=== PATIENT | female | born 1975 | race Caucasian/White ===

== ENCOUNTER 2017-05-08 03:22 | Emergency (ER) | payer MEDICAID ==
[2015-04-30 19:52] VITALS: BMI 25.7
[2017-05-08 03:52] LABS: BASOPHILS 0.1 % (0-2); EOSINOPHILS 1.2 % (0-7); HEMATOCRIT 44.7 % (36.0-48.0); HEMOGLOBIN 15.2 g/dL (12-16); IMMATURE GRANULOCYTES 0.1 % (0-5); LYMPHOCYTES 7.1 % (15-50); MCH 28.8 pg (26.0-34.0); MCV 84.8 fL (80.0-100.0); MONOCYTES 6.9 % (2-11); NEUTROPHILS 84.6 % (40-80); PLATELET COUNT 260 10x3/uL (130-400); RBC 5.27 10x6/uL (4.00-5.40); RDW 13.6 % (11.5-14.5); WBC 8.7 10x3/uL (4.8-10.8)
[2017-05-08 04:11] LABS: ALBUMIN 4.1 g/dL (3.4-5.0); ALKALINE PHOSPHATASE 89 U/L (46-116); ALT (SGPT) 20 U/L (10-68); AMYLASE - SERUM 90 U/L (25-115); BILIRUBIN - TOTAL 0.88 mg/dL (0.2-1.3); CALC OSMOLALITY 278 mosm/kg (275-300); CALCIUM 8.8 mg/dL (8.5-10.1); CHLORIDE - SERUM 104 mmol/L (98-107); CREATININE - SERUM 0.6 mg/dL (0.6-1.3); LIPASE 160 U/L (73-393); POTASSIUM - SERUM 3.6 mmol/L (3.5-5.1); SODIUM 138 mmol/L (136-145); UREA NITROGEN 19 mg/dL (7-18); eGFR NON AFRICAN AMERICAN > 90 mL/min (90-120)
[2017-05-08 04:13] LABS: GLUCOSE 124 mg/dL (74-106)
[2017-05-08 05:34] LABS: APPEARANCE HAZY (CLEAR); BACTERIA MODERATE /hpf (NONE SEEN); BILIRUBIN NEGATIVE (NEGATIVE); COLOR YELLOW (YELLOW); EPITHELIAL CELLS 0-5 /hpf (0-5); GLUCOSE NEGATIVE (NEGATIVE); KETONE MODERATE mg/dL (NEGATIVE); NITRITE NEGATIVE (NEGATIVE); PROTEIN TRACE mg/dL (NEGATIVE); RED CELLS - URINE 0-5 /hpf (0-5); SPECIFIC GRAVITY 1.025 (1.005-1.020); UROBILINOGEN NORMAL (NORMAL)
[2017-05-08 05:35] LABS: HCG URINE NEGATIVE (NEGATIVE)
[2017-05-14 18:06] LABS: AEROBE ID Final report (())
== END 2017-05-08 06:00 | disposition home or self-care (01) ==
LOC: D.ER 03:22
PROVIDERS: Family Medicine
DX: N39.0 Urinary tract infection, site not specified (principal)

== ENCOUNTER 2017-08-01 09:12 | Emergency (ER) | payer MEDICAID ==
[2015-04-30 19:52] VITALS: BMI 25.7
[2017-08-01 10:41] LABS: BASOPHILS 0.3 % (0-2); EOSINOPHILS 2.3 % (0-7); HEMATOCRIT 42.7 % (36.0-48.0); HEMOGLOBIN 14.2 g/dL (12-16); IMMATURE GRANULOCYTES 0.1 % (0-5); LYMPHOCYTES 29.7 % (15-50); MCH 28.2 pg (26.0-34.0); MCHC 33.3 g/dL (31.0-37.0); MCV 84.9 fL (80.0-100.0); MEAN PLATELET VOLUME 9.4 fL (7.4-10.4); MONOCYTES 10.2 % (2-11); NEUTROPHILS 57.4 % (40-80); RBC 5.03 10x6/uL (4.00-5.40); RDW 13.3 % (11.5-14.5)
[2017-08-01 10:47] LABS: ALBUMIN 4.2 g/dL (3.4-5.0); ALKALINE PHOSPHATASE 77 U/L (46-116); ALT (SGPT) 20 U/L (10-68); BILIRUBIN - TOTAL 0.51 mg/dL (0.2-1.3); CALC OSMOLALITY 279 mosm/kg (275-300); CALCIUM 8.9 mg/dL (8.5-10.1); CARBON DIOXIDE 25.2 mmol/L (21.0-32.0); CHLORIDE - SERUM 105 mmol/L (98-107); CREATININE - SERUM 0.8 mg/dL (0.6-1.3); GLUCOSE 84 mg/dL (74-106); POTASSIUM - SERUM 4.2 mmol/L (3.5-5.1); PROTEIN - SERUM 7.7 g/dL (6.4-8.2); SODIUM 140 mmol/L (136-145); UREA NITROGEN 18 mg/dL (7-18); eGFR NON AFRICAN AMERICAN 84 mL/min (90-120)
[2017-08-01 10:50] LABS: PLATELET COUNT 391 10x3/uL (130-400)
== END 2017-08-01 14:10 | disposition home or self-care (01) ==
LOC: D.ER 09:12
PROVIDERS: Family Medicine
DX: R55 Syncope and collapse (principal); R00.0 Tachycardia, unspecified

== ENCOUNTER 2017-09-01 21:03 | Emergency (ER) | payer BC ==
[2015-04-30 19:52] VITALS: BMI 25.7
== END 2017-09-01 22:39 | disposition home or self-care (01) ==
LOC: D.ER 21:03
DX: G43.909 Migraine, unspecified, not intractable, without status migrainosus (principal)

== ENCOUNTER 2017-11-17 12:52 | Emergency (ER) | payer BC ==
[2015-04-30 19:52] VITALS: BMI 25.7
[2017-11-17 13:25] LABS: BASOPHILS 0.5 % (0-2); EOSINOPHILS 2.6 % (0-7); HEMATOCRIT 39.3 % (36.0-48.0); HEMOGLOBIN 12.8 g/dL (12-16); IMMATURE GRANULOCYTES 0.2 % (0-5); LYMPHOCYTES 28.6 % (15-50); MCH 26.6 pg (26.0-34.0); MCHC 32.6 g/dL (31.0-37.0); MCV 81.5 fL (80.0-100.0); MEAN PLATELET VOLUME 8.7 fL (7.4-10.4); MONOCYTES 9.1 % (2-11); RBC 4.82 10x6/uL (4.00-5.40); RDW 15.3 % (11.5-14.5); WBC 6.5 10x3/uL (4.8-10.8)
[2017-11-17 14:10] LABS: PLATELET COUNT 283 10x3/uL (130-400)
[2017-11-17 16:09] LABS: APPEARANCE CLEAR (CLEAR); BILIRUBIN NEGATIVE (NEGATIVE); COLOR YELLOW (YELLOW); GLUCOSE NEGATIVE (NEGATIVE); KETONE NEGATIVE (NEGATIVE); NITRITE NEGATIVE (NEGATIVE); PROTEIN NEGATIVE (NEGATIVE); UROBILINOGEN NORMAL (NORMAL)
== END 2017-11-17 17:42 | disposition home or self-care (01) ==
LOC: D.ER 12:52
PROVIDERS: Family Medicine
DX: N93.9 Abnormal uterine and vaginal bleeding, unspecified (principal); N93.8 Other specified abnormal uterine and vaginal bleeding

== ENCOUNTER 2017-12-05 08:00 | Outpatient (CLI) | payer BC ==
[2015-04-30 19:52] VITALS: BMI 25.7
== END 2017-12-05 12:07 | disposition home or self-care (01) ==
LOC: D.MAMMO 08:00
DX: Z12.31 Encounter for screening mammogram for malignant neoplasm of breast (principal)

== ENCOUNTER → 2018-03-08 17:01 | Outpatient (CLI) | payer BC ==
[2015-04-30 19:52] VITALS: BMI 25.7
== END | disposition home or self-care (01) ==
LOC: D.MAMMO 14:30
DX: R92.8 Other abnormal and inconclusive findings on diagnostic imaging of breast (principal)

== ENCOUNTER 2018-05-20 19:30 | Emergency (ER) | payer BC ==
[~2018-05-20] VITALS: Ht 160 cm; Wt 66.7 kg
[2018-05-20 19:42] VITALS: Ht 160 cm; Wt 66.7 kg
[2018-05-20] MEDS ORDERED: VOLTAREN75 MG PO (20:54)
[2018-05-20] MEDS ORDERED: BACLOFEN20 M1 PO (20:54)
[2018-05-20 21:20] VITALS: BP 132/79
== END 2018-05-20 21:20 | disposition home or self-care (01) ==
LOC: D.ER 19:30
DX: M25.512 Pain in left shoulder (principal); W18.31XA Fall on same level due to stepping on an object, initial encounter; Y93.89 Activity, other specified; Y92.89 Other specified places as the place of occurrence of the external cause

== ENCOUNTER 2018-09-15 18:11 | Emergency (ER) | payer BC ==
[~2018-09-15] VITALS: Ht 160 cm; Wt 63.6 kg
[~2018-09-15 18:11] MED LIST: BACLOFEN20 M1 PO; VOLTAREN75 MG PO
[2018-09-15 18:25] VITALS: Ht 160 cm; Wt 63.6 kg
[2018-09-15 19:02] LABS: BASOPHILS 0.3 % (0-2); EOSINOPHILS 2.3 % (0-7); HEMATOCRIT 39.4 % (36.0-48.0); HEMOGLOBIN 13.1 g/dL (12-16); IMMATURE GRANULOCYTES 0.2 % (0-5); LYMPHOCYTES 17.2 % (15-50); MCHC 33.2 g/dL (31.0-37.0); MCV 81.2 fL (80.0-100.0); MEAN PLATELET VOLUME 8.7 fL (7.4-10.4); MONOCYTES 9.3 % (2-11); NEUTROPHILS 70.7 % (40-80); PLATELET COUNT 297 10x3/uL (130-400); RBC 4.85 10x6/uL (4.00-5.40); RDW 13.4 % (11.5-14.5)
[2018-09-15 19:45] LABS: ALBUMIN 3.4 g/dL (3.4-5.0); ALKALINE PHOSPHATASE 103 U/L (46-116); ALT (SGPT) 35 U/L (10-68); BILIRUBIN - TOTAL 0.34 mg/dL (0.2-1.3); CALC OSMOLALITY 277 mosm/kg (275-300); CALCIUM 8.6 mg/dL (8.5-10.1); CARBON DIOXIDE 23.4 mmol/L (21.0-32.0); CHLORIDE - SERUM 105 mmol/L (98-107); CREATININE - SERUM 0.8 mg/dL (0.6-1.3); GLUCOSE 99 mg/dL (74-106); POTASSIUM - SERUM 3.6 mmol/L (3.5-5.1); PROTEIN - SERUM 7.9 g/dL (6.4-8.2); SODIUM 139 mmol/L (136-145); UREA NITROGEN 13 mg/dL (7-18); eGFR NON AFRICAN AMERICAN 83 mL/min (90-120)
[2018-09-15 19:49] LABS: AMYLASE - SERUM 90 U/L (25-115); LIPASE 194 U/L (73-393)
[2018-09-15 19:54] LABS: TROPONIN-I < 0.017 ng/mL (0.000-0.060)
[2018-09-15 21:12] LABS: APPEARANCE CLEAR (CLEAR); BILIRUBIN NEGATIVE (NEGATIVE); COLOR YELLOW (YELLOW); GLUCOSE NEGATIVE (NEGATIVE); KETONE NEGATIVE (NEGATIVE); NITRITE NEGATIVE (NEGATIVE); PROTEIN NEGATIVE (NEGATIVE); RED CELLS - URINE OCC /hpf (0-5); UROBILINOGEN NORMAL (NORMAL); WHITE CELLS - URINE 0-5 /hpf (0-5)
[2018-09-15] MEDS ORDERED: TORADOL10 MG PO (21:56)
[2018-09-15 22:24] VITALS: BP 135/73
== END 2018-09-15 22:25 | disposition home or self-care (01) ==
LOC: D.ER 18:11
PROVIDERS: Emergency Medicine
DX: R10.32 Left lower quadrant pain (principal)

== ENCOUNTER 2018-12-29 18:15 | Emergency (ER) | payer BC ==
[~2018-12-29] VITALS: Ht 160 cm; Wt 63.6 kg
[~2018-12-29 18:15] MED LIST changes: +TORADOL10 MG PO
[2018-12-29 18:19] VITALS: Ht 160 cm; Wt 63.6 kg
[2018-12-29 18:32] LABS: BASOPHILS 0.5 % (0-2); EOSINOPHILS 3.2 % (0-7); HEMATOCRIT 35.3 % (36.0-48.0); HEMOGLOBIN 11.7 g/dL (12-16); IMMATURE GRANULOCYTES 0.3 % (0-5); LYMPHOCYTES 31.7 % (15-50); MCH 24.9 pg (26.0-34.0); MCHC 33.1 g/dL (31.0-37.0); MCV 75.3 fL (80.0-100.0); MONOCYTES 10.7 % (2-11); NEUTROPHILS 53.6 % (40-80); PLATELET COUNT 296 10x3/uL (130-400); RBC 4.69 10x6/uL (4.00-5.40); RDW 13.9 % (11.5-14.5); WBC 6.2 10x3/uL (4.8-10.8)
[2018-12-29 18:37] LABS: APTT 28.2 SECONDS (22.8-39.4); INR 0.96 (0.85-1.17); PROTIME 12.3 SECONDS (11.6-15.0)
[2018-12-29 19:02] LABS: ALBUMIN 3.6 g/dL (3.4-5.0); ALKALINE PHOSPHATASE 80 U/L (46-116); ALT (SGPT) 22 U/L (10-68); BILIRUBIN - TOTAL 0.52 mg/dL (0.2-1.3); CALC OSMOLALITY 279 mosm/kg (275-300); CALCIUM 8.8 mg/dL (8.5-10.1); CARBON DIOXIDE 23.6 mmol/L (21.0-32.0); CHLORIDE - SERUM 107 mmol/L (98-107); GLUCOSE 99 mg/dL (74-106); PROTEIN - SERUM 7.2 g/dL (6.4-8.2); SODIUM 140 mmol/L (136-145); UREA NITROGEN 14 mg/dL (7-18); eGFR NON AFRICAN AMERICAN 64 mL/min (90-120)
[2018-12-29 19:13] LABS: CKMB 0.3 U/L (0.0-3.6); CREATINE KINASE 69 UL (21-215); MAGNESIUM - SERUM 2.1 mg/dL (1.8-2.4); TROPONIN-I < 0.017 ng/mL (0.000-0.060)
[2018-12-29 19:56] LABS: APPEARANCE CLEAR (CLEAR); BILIRUBIN NEGATIVE (NEGATIVE); COLOR YELLOW (YELLOW); GLUCOSE NEGATIVE (NEGATIVE); KETONE NEGATIVE (NEGATIVE); NITRITE NEGATIVE (NEGATIVE); PROTEIN NEGATIVE (NEGATIVE); SPECIFIC GRAVITY 1.005 (1.005-1.020); UROBILINOGEN NORMAL (NORMAL)
[2018-12-29 20:30] VITALS: BP 126/68
== END 2018-12-29 20:30 | disposition home or self-care (01) ==
LOC: D.ER 18:15
PROVIDERS: Emergency Medicine
DX: R55 Syncope and collapse (principal)

== ENCOUNTER 2019-01-29 08:00 | Outpatient (CLI) | payer BC ==
[2018-12-29 18:19] VITALS: BMI 24.8
== END 2019-01-29 23:59 | disposition home or self-care (01) ==
LOC: D.MAMMO 08:00
PROVIDERS: ATTEND Family Medicine
DX: Z12.31 Encounter for screening mammogram for malignant neoplasm of breast (principal)

== ENCOUNTER 2019-03-31 17:00 | Emergency (ER) | payer BC ==
[~2019-03-31] VITALS: Ht 160 cm; Wt 63.6 kg
[2019-03-31 17:08] VITALS: Ht 160 cm; Wt 63.6 kg
[2019-03-31] MEDS ORDERED: ROBAXIN500 MG PO (19:28)
[2019-03-31] MEDS ORDERED: TORADOL10 MG PO (19:28)
[2019-03-31 20:29] VITALS: BP 132/85
== END 2019-03-31 20:29 | disposition home or self-care (01) ==
LOC: D.ER 17:00
DX: S16.1XXA Strain of muscle, fascia and tendon at neck level, initial encounter (principal); V59.3XXA Occupant (driver) (passenger) of pick-up truck or van injured in unspecified nontraffic accident, initial encounter; S00.83XA Contusion of other part of head, initial encounter; S40.011A Contusion of right shoulder, initial encounter; S06.0X9A Concussion with loss of consciousness of unspecified duration, initial encounter

== ENCOUNTER 2019-05-09 01:02 | Emergency (ER) | payer BC ==
[~2019-05-09] VITALS: Ht 160 cm; Wt 65.9 kg
[~2019-05-09 01:02] MED LIST changes: +ROBAXIN500 MG PO
[2019-05-09 01:11] VITALS: Ht 160 cm; Wt 65.9 kg
[2019-05-09 01:51] LABS: BASOPHILS 0.4 % (0-2); EOSINOPHILS 3.7 % (0-7); HEMATOCRIT 34.8 % (36.0-48.0); HEMOGLOBIN 10.6 g/dL (12-16); IMMATURE GRANULOCYTES 0.1 % (0-5); LYMPHOCYTES 27.1 % (15-50); MCH 22.8 pg (26.0-34.0); MCHC 30.5 g/dL (31.0-37.0); MCV 74.8 fL (80.0-100.0); MEAN PLATELET VOLUME 8.3 fL (7.4-10.4); MONOCYTES 12.3 % (2-11); NEUTROPHILS 56.4 % (40-80); PLATELET COUNT 322 10x3/uL (130-400); RBC 4.65 10x6/uL (4.00-5.40); RDW 15.7 % (11.5-14.5); WBC 7.1 10x3/uL (4.8-10.8)
[2019-05-09 01:58] LABS: CALC OSMOLALITY 283 mosm/kg (275-300); CALCIUM 8.4 mg/dL (8.5-10.1); CARBON DIOXIDE 28.1 mmol/L (21.0-32.0); CHLORIDE - SERUM 106 mmol/L (98-107); CREATININE - SERUM 0.8 mg/dL (0.6-1.3); GLUCOSE 96 mg/dL (74-106); POTASSIUM - SERUM 3.4 mmol/L (3.5-5.1); SODIUM 142 mmol/L (136-145); UREA NITROGEN 15 mg/dL (7-18); eGFR NON AFRICAN AMERICAN 83 mL/min (90-120)
[2019-05-09 02:02] LABS: APTT 27.9 SECONDS (22.8-39.4); INR 0.93 (0.85-1.17)
[2019-05-09 02:15] LABS: ALBUMIN 3.4 g/dL (3.4-5.0); ALKALINE PHOSPHATASE 98 U/L (46-116); ALT (SGPT) 44 U/L (10-68); BILIRUBIN - TOTAL 0.23 mg/dL (0.2-1.3); CKMB 0.2 U/L (0.0-3.6); CREATINE KINASE 102 UL (21-215); PROTEIN - SERUM 7.2 g/dL (6.4-8.2); TROPONIN-I < 0.017 ng/mL (0.000-0.060)
[2019-05-09 03:56] VITALS: BP 140/87
== END 2019-05-09 03:57 | disposition home or self-care (01) ==
LOC: D.ER 01:02
PROVIDERS: Family Medicine
DX: G45.3 Amaurosis fugax (principal); G43.909 Migraine, unspecified, not intractable, without status migrainosus; R42 Dizziness and giddiness; G89.29 Other chronic pain

== ENCOUNTER → 2019-11-04 08:12 | Outpatient (CLI) | payer BC ==
[2019-05-09 01:11] VITALS: BMI 25.7
== END | disposition home or self-care (01) ==
LOC: D.HCCECHO 08:12
PROVIDERS: ATTEND Internal Medicine Cardiovascular Disease
DX: I47.1 Supraventricular tachycardia (principal)

== ENCOUNTER 2019-11-12 21:05 | Emergency (ER) | payer BC ==
[~2019-11-12] VITALS: Ht 160 cm; Wt 70.5 kg
[2019-11-12 21:18] VITALS: Ht 160 cm; Wt 70.5 kg
[2019-11-12 22:12] LABS: BASOPHILS 0.3 % (0-2); EOSINOPHILS 3.6 % (0-7); HEMATOCRIT 34.8 % (36.0-48.0); HEMOGLOBIN 10.5 g/dL (12-16); IMMATURE GRANULOCYTES 0.2 % (0-5); LYMPHOCYTES 33.1 % (15-50); MCH 22.2 pg (26.0-34.0); MCHC 30.2 g/dL (31.0-37.0); MCV 73.4 fL (80.0-100.0); MEAN PLATELET VOLUME 8.1 fL (7.4-10.4); MONOCYTES 9.2 % (2-11); NEUTROPHILS 53.6 % (40-80); PLATELET COUNT 357 10x3/uL (130-400); RBC 4.74 10x6/uL (4.00-5.40); RDW 15.8 % (11.5-14.5); WBC 6.4 10x3/uL (4.8-10.8)
[2019-11-12 22:28] LABS: CALC OSMOLALITY 273 mosm/kg (275-300); CALCIUM 8.3 mg/dL (8.5-10.1); CHLORIDE - SERUM 104 mmol/L (98-107); CREATININE - SERUM 0.7 mg/dL (0.6-1.3); GLUCOSE 97 mg/dL (74-106); POTASSIUM - SERUM 3.3 mmol/L (3.5-5.1); SODIUM 136 mmol/L (136-145); UREA NITROGEN 18 mg/dL (7-18); eGFR NON AFRICAN AMERICAN > 90 mL/min (90-120)
[2019-11-12 22:30] LABS: ALBUMIN 3.7 g/dL (3.4-5.0); ALKALINE PHOSPHATASE 86 U/L (30-120); ALT (SGPT) 38 U/L (10-68); BILIRUBIN - TOTAL 0.48 mg/dL (0.2-1.3); PROTEIN - SERUM 7.5 g/dL (6.4-8.2)
[2019-11-13 00:06] LABS: BILIRUBIN NEGATIVE (NEGATIVE); GLUCOSE NEGATIVE (NEGATIVE); KETONE NEGATIVE (NEGATIVE); NITRITE NEGATIVE (NEGATIVE); SPECIFIC GRAVITY 1.015 (1.005-1.020); UROBILINOGEN NORMAL (NORMAL)
[2019-11-13 02:05] VITALS: BP 149/72
== END 2019-11-13 02:05 | disposition home or self-care (01) ==
LOC: D.ER 21:05
PROVIDERS: Family Medicine
DX: R00.0 Tachycardia, unspecified (principal); R06.02 Shortness of breath; R42 Dizziness and giddiness; R07.9 Chest pain, unspecified

== ENCOUNTER 2020-03-02 16:11 | Observation (INO) | payer BC ==
[~2020-03-02] VITALS: Ht 160 cm; Wt 71.4 kg
--- NOTE | ~2020-03-02 | HEMODYNAMI ---
PATIENT:RICARDO MONTES MEDICAL RECORD: [id number] : 77 LOCATION:[facility] D.2120 ADMISSION DATE: 03/02/20 Generatedon:03/03/202013:50 Patient name: RICARDO MONTES Patient #: [id number] SSN: D OB: 1975 Date of study: 03/03/2020 Page: Of Hemodynamic Procedure Report Patient Data Patient Demographics Procedure consent was obtained First Name: RICARDO Gender: Female Last Name: JYOTI : 1975 Middle Initial: F Age: 44 year(s) Patient #: [id number] Race: Additional ID: [id number] Contact details [address]: [address] [place] [address] rd State: [place] City: [place] Zip code: [address] Past Medical History Allergies Allergen Reaction Date Comments Reported Other allergy 03/03/2020 LATEX/NATURAL RUBBER Admission Admission Data Admission Date: 03/02/2020 Admission Time: 17:47 Room #: D.2120 Height (in.): 62.99 BSA: 1.74 (m2) Height (cm.): 160 BMI: 27.73 (kg/m2) Weight (lbs.): 156.53 Weight (kg.): 71 Lab Results Lab Result Date: 03/03/2020 Lab Result Time: 4:40 Biochemistry Name Units Result Min Max BUN mg/dl 17 --(---*)-- 7 18 Creatinine mg/dl 0.8 --(-*--)-- 0.6 1.3 eGFR ml/min 82.28592 -*(----)-- 90 120 NONAFRICAN CBC Name Units Result Min Max Hematocrit % 34.5 *-(----)-- 42 54 Hemoglobin g/dl 10.5 *-(----)-- 13.5 17.5 Procedure Procedure Types Cath Procedure Diagnostic Procedure LHC LH w/Coronaries Sedation Charges Moderate Sedation up to 15 minutes Procedure Description Procedure Date Procedure Date: 03/03/2020 Procedure Start Time: 13:35 Procedure End Time: 13:46 Procedure Staff Name Function Vick Mccauley MD Performing Physician Kayden Carr RT Monitor Mary Bone RT Scrub Batool Coker RN Nurse Batool Coker RN Nurse Indication Chest pain Procedure Data Cath Procedure Fluoroscopy Diagnostic fluoroscopy Total fluoroscopy Time: 3.4 time: 3.4 min min Diagnostic fluoroscopy Total fluoroscopy dose: 262 dose: 262 mGy mGy Contrast Material Contrast Material Type Amount (ml) Isovue 300 62 Entry Location Entry Primary Successful Side Size Upsize Upsize Entry Closure Succes sful Closure Location (Fr) 1 (Fr) 2 (Fr) Remarks Device Remarks Femoral Right 5 Fr Exoseal artery Estimated blood loss: 5 ml Diagnostic catheters Device Type Used For End Catheter Placement MULTIPACK JL 4.0 5Fr Procedure catheter DIAGNOSTIC JL 3.5 5Fr Procedure catheter ([id number]) MULTIPACK 3DRC 5Fr Procedure catheter MULTIPACK Pigtail 5 Fr Procedure catheter Procedure Complications No complications Procedure Medications Medication Administration Route Dosage 0.9% NaCl I.V. 100 ml/hr Heparin Flush Bag added to field 2 bags (1000units/500ml NS) Oxygen etCO2 Nasal cannula 2 l/min Lidocaine 2% added to field 20 Fentanyl I.V. 50 mcg Versed I.V. 1 mg Hemodynamics Rest BSA: 1.74 (m2) HGB: 10.5 (g/dl) O2 Consumption: Estimated: 188.75 (ml/min) O2 Co nsumption indexed: Estimated:108.48 (ml/min/m) Heart Rate: 91 (bpm) Pressure Samples Time Site Value (mmHg) Purpose Heart Use Rate(bpm) 13:44 LV 131/15,25 Snapshot 93 13:44 AO 117/85(95) Pullback 94 13:44 LV 130/-13,27 Pullback 94 Gradients Valve Time Site 1 Site 2 Mean SEP/DFP Peak To Heart Use (mmHg) (sec/min) Peak Rate (mmHg) (bpm) Aortic 13:44 LV AO 34 15 13 94 130/-13,27 117/85(95) Calculations Valve P-P Mean Valve Index Valve Source Name Gradient Area Flow (cm2) Aortic 13 34 13 34 Snapshots Pre Cath Intra NCS Post Cath Vital Signs Time Heart Resp SPO2 etCO2 NIBP Rhythm Pain Sedation Rate (ipm) (%) (mmHg) (mmHg) Status Level (bpm) 12:38:34 81 20 99 0 127/71(94) NSR 0 (11) 10(A) , No pain 12:42:52 88 18 100 0 127/60(92) NSR 0 (11) 10(A) , No pain 12:47:10 84 16 99 0 125/62(87) NSR 0 (11) 10(A) , No pain 12:51:26 90 18 99 0 121/63(82) NSR 0 (11) 10(A) , No pain 12:55:40 88 20 99 0 128/67(89) NSR 0 (11) 10(A) , No pain 12:59:56 87 24 100 0 126/66(88) NSR 0 (11) 10(A) , No pain 13:04:15 81 22 100 0 116/60(89) NSR 0 (11) 10(A) , No pain 13:08:26 80 22 100 0 124/66(85) NSR 0 (11) 10(A) , No pain 13:12:40 79 27 100 0 125/66(87) NSR 0 (11) 10(A) , No pain 13:16:52 82 24 100 0 124/65(89) NSR 0 (11) 10(A) , No pain 13:21:06 85 20 100 0 119/63(85) NSR 0 (11) 10(A) , No pain 13:25:23 85 31 100 0 119/59(81) NSR 0 (11) 10(A) , No pain 13:29:36 80 40 99 0 116/60(88) NSR 0 (11) 9(A) , No pain 13:33:50 84 36 99 0 121/58(86) NSR 0 (11) 9(A) , No pain 13:38:02 85 23 100 0 126/64(89) NSR 0 (11) 9(A) , No pain 13:42:18 87 17 100 0 115/62(86) NSR 0 (11) 9(A) , No pain 13:46:30 90 20 100 0 122/62(95) NSR 0 (11) 9(A) , No pain Medications Time Medication Route Dose Verified Delivered Reason Notes Eff ectiveness by by 12:31:25 0.9% NaCl I.V. 100 Batool Batool Per ml/hr John Paul Coker, physician RN RN 12:31:35 Heparin Flush added 2 Batool Batool used for Bag to bags John Paul Coker procedure (1000units/500ml field RN RN NS) 12:31:50 Oxygen etCO2 2 Batool Batool for low 02 Nasal l/min John Paul Coker sats cannula RN RN 12:32:01 Lidocaine 2% added 20ml Batool Vick for local to vial John Paul [place] anesthetic field RN 13:27:27 Fentanyl I.V. 50 Batool Batool for mcg John Paul Coker, sedation RN RN 13:27:31 Versed I.V. 1 mg Batool Batool for John Paul Coker, sedation RN hot roll inspector Log Time Note 12:11:14 Informed consent obtained and on chart 12:12:10 Indication : Chest pain 12:12:31 Patient Height : 62.99 inches 12:12:37 Patient Weight : 156.53 lbs 12:13:02 Procedure Status Urgent Heart Cath (IP). 12:13:10 Time tracking: Regular hours (M-F 7:00 - 5:00) 12:13:17 Plan of Care:Hemodynamics will remain stable., Cardiac rhythm will remain stable., Comfort level will be maintained., Respiratory function will remain adequate., Patient/ family verbilizes understanding of procedure., Procedure tolerated without complication., Recovers from procedure without complications.. 12:13:47 Patient allergic to Other allergyLATEX/NATURAL RUBBER 12:13:55 H&P Date Dictated: 03/03/2020 Within 30 days and on chart., ER History on chart.. 12:15:56 Kayden aCrr RT(R) sent for patient. Start room use. 12:24:09 Patient received from Med II to CCL 1 Alert and oriented. Tansferred to table in Supine position. 12:24:10 Warm blankets applied, and byron hugger turned on for patient comfort. 12:24:11 Correct patient and procedure confirmed by team. 12:24:13 ECG and BP/O2 sat monitors applied to patient. 12:24:15 Full Disclosure recording started 12:26:06 Pre-procedure instructions explained to patient. 12:26:06 Pre-op teaching completed and patient verbalized understanding. 12:26:08 Family unavailable. 12:26:09 Patient NPO since Midnight. 12:26:13 Is the patient allergic to Iodine/contrast media? No. 12:26:14 Is patient on blood thinner?No 12:26:15 Patient diabetic? No. 12:26:19 Previous problem with sedation/anesthesia? No ? 12:26:20 Snore? No 12:26:21 Sleep apnea? No 12:26:21 Deviated septum? No 12:26:22 Opens mouth fully? Yes 12:26:23 Sticks out tongue? Yes 12:26:24 Airway obstruction? No ? 12:26:25 Dentures? No ? 12:31:25 0.9% NaCl 100 ml/hr I.V. was administered by Batool Coker RN; Per physician; Verbal order read back and verified. 12:31:35 Heparin Flush Bag (1000units/500ml NS) 2 bags added to field was administered by Batool Coker RN; used for procedure; Verbal order read back and verified. 12:31:50 Oxygen 2 l/min etCO2 Nasal cannula was administered by Batool Coker RN; for low 02 sats; Verbal order read back and verified. 12:32:01 Lidocaine 2% 20ml vial added to field was administered by Vick Mccauley MD; for local anesthetic; Verbal order read back and verified. 12:34:21 Pre procedure: right dorsailis pedis pulse 2+ Normal; easily identifiable; not easily obliterated 12:34:23 Patient pain scale 0/10 ?. 12:34:31 IV patent on arrival in left forearm with 0.9% NaCl at [facility]. 12:35:06 Lab Result : Creatinine 0.8 mg/dl 12:35:06 Lab Result : BUN 17 mg/dl 12:35:06 Lab Result : Hemoglobin 10.5 g/dl 12:35:06 Lab Result : eGFR NONAFRICAN 82.49424 ml/min 12:35:06 Lab Result : Hematocrit 34.5 % 12:35:09 Lab results completed and on chart. 12:37:03 Patient not . Patient has had tubal. 12:37:09 Right groin area was prepped with chlora-prep and draped in sterile fashion 12:37:10 Alarms reviewed by Kirsty. N. 12:37:11 Sharps counted by scrub and verified by R.N. 12:37:14 Use device set Femoral Dx 12:37:15 ACIST Syringe (81926) opened to sterile field. 12:37:15 Bag Decanter (2002S) opened to sterile field. 12:37:17 ACIST Hand Control (70488) opened to sterile field. 12:37:17 ACIST Manifold (09967) opened to sterile field. 12:37:18 DIAGNOSTIC Multipack 5Fr catheter set (II6188) opened to sterile field. 12:37:[address] SHEATH 5FR Trail (MMV724) opened to sterile field. 12:37:21 EMERALD Guide Wire (081-730) opened to sterile field. 12:37:23 Tegaderm 4 x 4 (1626W) opened to sterile field. 12:37:24 Medline Cath Pack ([id number]) opened to sterile field. 12:37:29 Baseline sample Acquired. 12:37:29 Vital chart was started 12:37:33 Rhythm: sinus rhythm 12:37:38 ACC Patient presents with Stable Angina CCS Anginal Class 2--Slight limitation of ordinary activity. 12:37:42 Physician arrived 13:26:34 Physician arrived 13:26:35 --------ALL STOP TIME OUT------ 13:26:35 Final Timeout: patient, procedure, and site verified with staff and physician. All members of the team are in agreement. 13:26:37 Right groin site verified by team. 13:26:40 Fire Safety Assessment: A--An alcohol-based skin anteseptic being used preoperatively., C--Open oxygen or nitrous oxide is being used., D--An ESU, laser, or fiber-optic light is being used. 13:26:42 Physical assessment completed. ASA score P 2 - A patient with mild systemic disease as per Vick Mccauley MD. 13:26:46 2) 60-89 Mildly reduced kidney function, and other findings (as for stage 1) point to kidney disease. 13:26:49 Maximum allowable contrast dose (3.7 X eGFR X 0.75)230 ml. 13:26:52 Sedation plan: IV Moderate Sedation Medication:Versed, Fentanyl 13:27:27 Fentanyl 50 mcg I.V. was administered by Batool Coker RN; for sedation; Verbal order read back and verified. 13:27:31 Versed 1 mg I.V. was administered by Batool Coker RN; for sedation; Verbal order read back and verified. 13:35:28 Procedure started. 13:35:31 Local anesthetic to right femoral artery with Lidocaine 2% by Vick Mccauley MD.INITIAL ACCESS ONLY 13:35:38 A 5 Fr sheath was inserted into the Right Femoral artery 13:35:50 Zero performed for pressure channel P1 13:36:47 A MULTIPACK JL 4.0 5Fr catheter was advanced over the wire and used for Procedure. 13:38:19 Catheter exchanged over wire. 13:38:27 A DIAGNOSTIC JL 3.5 5Fr catheter ([id number]) was advanced over the wire and used for Procedure. 13:38:30 LCA angiography performed. 13:42:01 Catheter exchanged over wire. 13:42:10 A MULTIPACK 3DRC 5Fr catheter was advanced over the wire and used for Procedure. 13:42:13 RCA angiography performed. 13:43:01 Catheter exchanged over wire. 13:43:05 A MULTIPACK Pigtail 5 Fr catheter was advanced over the wire and used for Procedure. 13:43:14 EXOSEAL 5Fr (EX500) opened to sterile field. 13:44:32 LV gram done using PALOMO 13:44:36 Injector settings: Ml/sec: 10, Volume: 20, 13:44:42 LV hemodynamics recorded. 13:44:46 EF : 55 % 13:44:47 Catheter removed. 13:44:54 Sheath removed intact; hemostasis achieved with Exoseal to the Right Femoral artery. 13:44:55 Procedure ended.(Physican Out) 13:45:05 Fluoroscopy time 03.40 minutes. 13:45:10 Fluoroscopy dose: 262 mGy 13:45:10 Flurop Dose total: 262 13:45:15 Dose Area Product 11408 mGy/cm. 13:45:18 Contrast amount:Isovue 300 62ml. 13:45:20 Maximum allowable dose exceeded? No. 13:45:21 Sharps counted by scrub and verified by R.N. 13:45:25 Post-op/insertion site Right Femoral artery dressed using a 4 x 4 and Tegaderm. 13:45:26 Insertion/operative site no bleeding no hematoma. 13:45:30 Post Procedure Pulses reassessed and unchanged 13:45:32 Post-procedure physical assessment completed. ASA score P 2 - A patient with mild systemic disease as per Vick Mccauley MD. 13:45:34 Post procedure rhythm: unchanged. 13:45:36 Estimated blood loss: 5 ml 13:45:37 Post procedure instruction explained to patient.Patient verbalizes understanding. 13:45:37 Patient needs reinforcement of post procedure teaching. 13:46:06 Procedure type changed to Cath procedure, Diagnostic procedure, LHC, LHC w/Coronaries, Sedation Charges, Moderate Sedation up to 15 minutes 13:46:25 IV Extension Set opened to sterile field. 13:46:36 Procedure and supply charges have been captured, reviewed, submitted and are correct. 13:46:38 Procedure Complication : No complications 13:46:40 Vital chart was stopped 13:46:45 Operative report dictated upon procedure completion. 13:46:45 See physician's report for complete and final results. 13:46:46 Report given to PCU. 13:46:49 Patient transfered to PCU with Stretcher. 13:46:51 Procedure ended. 13:46:51 Full Disclosure recording stopped 13:46:54 End room use (Document Last) 13:48:29 End room use (Document Last) 13:48:39 End room use (Document Last) 13:48:39 Mary Bone RT(R) (CV) was relieved by Kayden Carr RT(R) as monitoring person 13:49:09 End room use (Document Last) 13:50:13 Kayden Carr RT(R) was relieved by Kayden Lynneer RT(R) as monitoring person Device Usage Item Name Manufacture Quantity Catalog Hospital Part Current Minimal L ot# / Number Charge Number Stock Stock Serial# Code ACIST Acist 1 53633 673866 681155 065088 20 Syringe Medical (09148) Systems Inc Bag Microtek 1 538028 96684 814109 5 Decanter Medical Inc. () ACIST Hand Acist 1 59216 675020 229766 431378 5 Control Medical (34137) Systems Inc ACIST Acist 1 85876 731546 687004 981246 5 Manifold Medical (43296) Systems Inc DIAGNOSTIC Cardinal 1 AH5222 353435 77799 188460 30 Multipack Health 5Fr catheter set (FZ7072) SHEATH 5FR Terumo 1 NCB378 535193 690059 415691 5 Trail (NIN383) EMERALD Cardinal 1 502-455 803599 918660 078078 5 Guide Wire Health (502-455) Tegaderm 4 3M 1 1626W 195242 891329 863018 5 x 4 (1626W) Medline Medline 1 [id number] 643691 09665 669940 5 Cath Pack ([id number]) MULTIPACK Cardinal 1 414921 5 JL 4.0 5Fr Health catheter DIAGNOSTIC Cardinal 1 [id number] 330781 782176 936090 5 JL 3.5 5Fr Health catheter (277101K) MULTIPACK Cardinal 1 593722 5 3DRC 5Fr Health catheter MULTIPACK Cardinal 1 187040 5 Pigtail 5 Health Fr catheter EXOSEAL 5Fr Cardinal 1 EX500 331329 439671 917780 10 (EX500) Health IV Hospira 1 33077-21 779453 36755 997538 5 Extension Set Signature Audit [place] Stage Time Signature Unsigned Intra-Procedure 03/03/2020 Kayden Carr 1:48:29 PM RT(R) Intra-Procedure 03/03/2020 Batool Coker, 1:50:09 PM RN Intra-Procedure 03/03/2020 Vick Lynch 1:50:27 PM [facility] [address] [place] [address]
[2020-03-02] MEDS ORDERED: BYSTOLIC5 MG PO (16:31)
[2020-03-02 16:58] LABS: BASOPHILS 0.5 % (0-2); EOSINOPHILS 2.4 % (0-7); HEMATOCRIT 37.6 % (36.0-48.0); HEMOGLOBIN 11.6 g/dL (12-16); IMMATURE GRANULOCYTES 0.2 % (0-5); LYMPHOCYTES 31.1 % (15-50); MCH 22.8 pg (26.0-34.0); MCHC 30.9 g/dL (31.0-37.0); MCV 73.9 fL (80.0-100.0); MEAN PLATELET VOLUME 8.4 fL (7.4-10.4); MONOCYTES 8.7 % (2-11); NEUTROPHILS 57.1 % (40-80); PLATELET COUNT 326 10x3/uL (130-400); RBC 5.09 10x6/uL (4.00-5.40); RDW 16.4 % (11.5-14.5); WBC 6.3 10x3/uL (4.8-10.8)
[2020-03-02 17:06] LABS: APTT 28.2 SECONDS (22.8-39.4); INR 0.95 (0.85-1.17); PROTIME 12.7 SECONDS (11.6-15.0)
[2020-03-02 17:07] LABS: CALC OSMOLALITY 279 mosm/kg (275-300); CALCIUM 8.4 mg/dL (8.5-10.1); CARBON DIOXIDE 23.5 mmol/L (21.0-32.0); CHLORIDE - SERUM 105 mmol/L (98-107); CREATININE - SERUM 0.7 mg/dL (0.6-1.3); GLUCOSE 98 mg/dL (74-106); POTASSIUM - SERUM 3.7 mmol/L (3.5-5.1); SODIUM 139 mmol/L (136-145); UREA NITROGEN 17 mg/dL (7-18); eGFR NON AFRICAN AMERICAN > 90 mL/min (90-120)
[2020-03-02 17:14] VITALS: BP 145/85
[2020-03-02 17:23] LABS: ALBUMIN 3.5 g/dL (3.4-5.0); ALKALINE PHOSPHATASE 82 U/L (30-120); ALT (SGPT) 31 U/L (10-68); BILIRUBIN - TOTAL 0.42 mg/dL (0.2-1.3); CKMB 0.8 U/L (0.0-3.6); CREATINE KINASE 91 UL (21-215); MAGNESIUM - SERUM 1.9 mg/dL (1.8-2.4); PROTEIN - SERUM 7.3 g/dL (6.4-8.2); TROPONIN-I < 0.017 ng/mL (0.000-0.060)
[2020-03-02 21:18] VITALS: BP 133/72; Ht 160 cm; Wt 71.4 kg
[2020-03-02 21:29] VITALS: BP 133/72
[2020-03-02 23:16] LABS: CREATINE KINASE 85 UL (21-215)
[2020-03-02 23:17] LABS: TROPONIN-I < 0.017 ng/mL (0.000-0.060)
--- NOTE | 2020-03-03 02:43 | NUR ---
REPORT RECIEVED AND PATIENT SITTING ON THE SIDE OF HER BED TALKING ON HER CELL PHONE. REPORTS NO PAIN AT THIS TIME. LEFT AC PIV THAT IS SALINE LOCKED. NO NEEDS VOICED, NO DISTRESS NOTED. A&O X4. CALL LIGHT WITHIN REACH AND BED IN LOWEST LOCKED POSITION.
[2020-03-03 04:00] VITALS: BP 115/60
[2020-03-03 05:00] LABS: BASOPHILS 0.5 % (0-2); EOSINOPHILS 3.1 % (0-7); HEMATOCRIT 34.5 % (36.0-48.0); HEMOGLOBIN 10.5 g/dL (12-16); IMMATURE GRANULOCYTES 0.2 % (0-5); LYMPHOCYTES 29.8 % (15-50); MCH 22.6 pg (26.0-34.0); MCHC 30.4 g/dL (31.0-37.0); MCV 74.2 fL (80.0-100.0); MEAN PLATELET VOLUME 8.6 fL (7.4-10.4); MONOCYTES 10.8 % (2-11); NEUTROPHILS 55.6 % (40-80); PLATELET COUNT 313 10x3/uL (130-400); RBC 4.65 10x6/uL (4.00-5.40); RDW 16.6 % (11.5-14.5); WBC 5.8 10x3/uL (4.8-10.8)
[2020-03-03 05:19] LABS: ALBUMIN 3.1 g/dL (3.4-5.0); ALKALINE PHOSPHATASE 78 U/L (30-120); ALT (SGPT) 28 U/L (10-68); BILIRUBIN - TOTAL 0.22 mg/dL (0.2-1.3); CALC OSMOLALITY 279 mosm/kg (275-300); CALCIUM 8.1 mg/dL (8.5-10.1); CHLORIDE - SERUM 106 mmol/L (98-107); CHOL - HDL RATIO 2.8 ratio (2.3-4.1); CHOLESTEROL, TOTAL 114 mg/dL (0-200); CKMB 0.8 U/L (0.0-3.6); CREATINE KINASE 73 UL (21-215); CREATININE - SERUM 0.8 mg/dL (0.6-1.3); GLUCOSE 104 mg/dL (74-106); HDL CHOLESTEROL 41 mg/dL (32-96); LDL CHOLESTEROL 51 mg/dL (0-100); LDL-HDL RATIO 1.2 ratio (1.5-3.5); MAGNESIUM - SERUM 1.9 mg/dL (1.8-2.4); PHOSPHOROUS 3.3 mg/dL (2.5-4.9); POTASSIUM - SERUM 3.8 mmol/L (3.5-5.1); PROTEIN - SERUM 6.6 g/dL (6.4-8.2); SODIUM 139 mmol/L (136-145); TRIGLYCERIDE 110 mg/dL (30-200); UREA NITROGEN 17 mg/dL (7-18); eGFR NON AFRICAN AMERICAN 83 mL/min (90-120)
[2020-03-03 05:30] LABS: TROPONIN-I < 0.017 ng/mL (0.000-0.060)
[2020-03-03 07:50] VITALS: BP 112/66
--- NOTE | 2020-03-03 09:00 | NUR ---
CONSENTS SIGNED FOR [facility]. WILL CONT. PLAN OF CARE.
[2020-03-03 10:35] LABS: CKMB 0.7 U/L (0.0-3.6); CREATINE KINASE 73 UL (21-215); TROPONIN-I < 0.017 ng/mL (0.000-0.060)
[2020-03-03 11:46] VITALS: BP 114/67
--- NOTE | 2020-03-03 12:30 | NUR ---
PRE-OPS GIVEN. TO FRAME OPENER BY BED.
--- NOTE | 2020-03-03 16:02 | NUR ---
BED REST UP. GROIN STABLE.
--- NOTE | 2020-03-03 17:36 | NUR ---
IV AND TELEMETRY DCD. DC PLANS GIVEN. UNDERSTANDING VOICED. ESCORTED TO CAR BY W/C.
--- NOTE | 2020-03-04 08:07 | MORECARE ---
CASE MANAGEMENT DISCHARGE SUMMARY PATIENT: RICARDO MONTES UNIT: [id number] ADM DATE: 03/02/20 AGE: 44 : [birth year] SEX: F ROOM/BED: D.9629 AUTHOR: JANNETTE SWEENEY PHYSICIAN: REFERRING PHYSICIAN: MISHA HERNANDEZ MD DATE OF SERVICE: 03/04/20 Discharge Plan Patient Name: RICARDO MONTES Facility: [facility]:[place] : 1975 Planned Disposition: Anticipated Discharge Date: Discharge Date: 03/03/2020 Expected LOS: 0 Initial Reviewer: [email or web address] Initial Review Date: 03/04/2020 Generated: 03/04/20 9:06 am Patient Name: RICARDO MONTES Page 33809 at 0807 All edits/amendments must be made on the electronic document DICTATION DATE: 03/04/20805 BUSINESS PERFORMANCE SPECIALIST: MICHELL 03/04/20 08 RPT#: [id number] DC DATE:03/03/20 STATUS: DIS IN [facility] [address] [place] [address] END OF REPORT
--- NOTE | 2020-03-04 09:11 | CN ---
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 Additionally, she has had noticed increased effort intolerance over the past same period of time. We are asked to see her concerning her cardiovascular status. PAST MEDICAL HISTORY: Includes; 1. History of hypertension. 2. Cardiac arrhythmias with SVT. 3. Prediabetes. ALLERGIES: INCLUDE LATEX. SOCIAL HISTORY: Nonsmoker, social drinker. Easily takes care of all her ADLs. REVIEW OF SYSTEMS: The patient reports easy bruising but reports no swollen glands. The patient reports no fever, no night sweats, no significant weight gain, no significant weight loss. No significant exercise tolerance. The patient reports no dry eyes, no irritation, no vision change. Patient reports no difficulty hearing and no ear pain. Patient reports no frequent nose bleeds or nose and sinus problems. Patient reports on arm pain on exertion. No shortness of breath while lying down. No history of heart murmur. Patient reports no cough, no wheezing or coughing up blood. Patient reports no abdominal pain, no vomiting. Normal appetite. No diarrhea and not vomiting blood. No nausea and no constipation. Patient reports no incontinence. No difficulty urinating. No hematuria. No increased frequency. Patient reports no muscle aches. No weakness, no arthralgias, no back pain. No swelling of the extremities. Patient reports no abnormal mole, no jaundice, no rashes. Reports no loss of consciousness. No weakness and no numbness. No seizures, dizziness, or headaches. The patient reports no depression, no sleep disturbance, feeling safe in a relationship and no alcohol abuse. Patient reports on fatigue. Reports no runny nose or sinus pressure. No itching, no hives, and no frequent sneezing. PHYSICAL EXAMINATION: GENERAL: Pleasant female, in no acute distress, appears stated age. VITAL SIGNS: Blood pressure 112/66, pulse 82 and regular. HEENT: Normocephalic, atraumatic. NECK: No bruits are noted. HEART: Regular. LUNGS: Good air excursion. ABDOMEN: Soft, nontender. EXTREMITIES: Pulses 2+. There is no edema. DIAGNOSTIC DATA: EKG shows anterior T-wave changes. Questionable juvenile variant. CONSULT REPORT [id number] RICARDO MONTES IMPRESSION: Acute coronary syndrome. Significant risk factors. PLAN: For angiography, intervention based on above. TRANSINT:[id number] Voice Confirmation ID: [id number] DOCUMENT ID: [id number] LISSETTE SILVA MD at 0911 CC: [id number] DICTATION DATE: 03/03/20 1138 STATEMENT CLERKS SUPERVISOR: 03/03/20 1456 DIS IN 03/03/20 [id number] [place] [address]
--- NOTE | 2020-03-04 09:11 | OP ---
PATIENT NAME: RICARDO MONTES MEDICAL RECORD: [id number] :[birth year] LOCATION:D.M2 D.0 ADMISSION DATE:03/02/20 SURGEON: LISSETTE SILVA MD DATE OF OPERATION: 03/03/2020 PROCEDURE: Left heart catheterization, selective coronary angiography, right femoral artery approach. CATHETERS: A 5-Amharic sheath, 5/4 left and right Antonio, 5/4 pig. The procedure was well tolerated. The patient returned to the [place]. Sheath removed. ExoSeal device placed. FINDINGS: Left ventriculography in 30-degree PALOMO view: Normal wall motion. Normal systolic function. CORONARY ANATOMY: LEFT MAIN: Free of disease. LAD: Free of disease in the diagonal system. CIRCUMFLEX: Free of disease in the marginal system. RIGHT CORONARY ARTERY: Dominant artery, gives rise to PDA, free of disease. IMPRESSION: Normal LV systolic function. Normal coronary anatomy. NTS:[id number] Voice Confirmation ID: [id number] DOCUMENT ID: [id number] LISSETTE SILVA MD at 0911 CC: [id number] DICTATION DATE: 03/03/20 1350 INDUSTRIAL SALES ENGINEER: 03/03/204 DIS IN 03/03/20 [facility] [address] [place] [address]
== END 2020-03-03 17:36 | disposition home or self-care (01) ==
LOC: D.ER 16:11 → D.M2 17:47 → OBSVTIME 17:47 → D.M2 03-03 17:36
PROVIDERS: Family Medicine; ADMIT Family Medicine; ATTEND Family Medicine
DX: R07.89 Other chest pain (principal); R73.03 Prediabetes; K21.9 Gastro-esophageal reflux disease without esophagitis; F32.9 Major depressive disorder, single episode, unspecified; Z87.898 Personal history of other specified conditions; I10 Essential (primary) hypertension

== ENCOUNTER 2020-04-05 22:56 | Emergency (ER) | payer BC ==
[~2020-04-05] VITALS: Ht 160 cm; Wt 72.7 kg
[~2020-04-05 22:56] MED LIST changes: +BYSTOLIC5 MG PO
[2020-04-05 23:02] VITALS: Ht 160 cm; Wt 72.7 kg
[2020-04-05] MEDS ORDERED: PROPAFENONE HC150 MG PO (23:05)
[2020-04-05 23:33] LABS: HEMATOCRIT 34.7 % (36.0-48.0); HEMOGLOBIN 10.9 g/dL (12-16); LYMPHOCYTES 24.6 % (15-50); MCH 23.5 pg (26.0-34.0); MCHC 31.4 g/dL (31.0-37.0); MCV 74.8 fL (80.0-100.0); MEAN PLATELET VOLUME 8.5 fL (7.4-10.4); NEUTROPHILS 63.1 % (40-80); PLATELET COUNT 336 10x3/uL (130-400); RBC 4.64 10x6/uL (4.00-5.40); RDW 15.7 % (11.5-14.5); WBC 7.1 10x3/uL (4.8-10.8)
[2020-04-05 23:35] LABS: CALC OSMOLALITY 278 mosm/kg (275-300); CALCIUM 8.2 mg/dL (8.5-10.1); CARBON DIOXIDE 27.2 mmol/L (21.0-32.0); CHLORIDE - SERUM 105 mmol/L (98-107); GLUCOSE 100 mg/dL (74-106); POTASSIUM - SERUM 3.8 mmol/L (3.5-5.1); SODIUM 138 mmol/L (136-145); UREA NITROGEN 21 mg/dL (7-18); eGFR NON AFRICAN AMERICAN 64 mL/min (90-120)
[2020-04-05 23:38] LABS: APTT 28.2 SECONDS (22.8-39.4); INR 0.86 (0.85-1.17); PROTIME 11.7 SECONDS (11.6-15.0)
[2020-04-05 23:53] LABS: ALBUMIN 3.2 g/dL (3.4-5.0); ALKALINE PHOSPHATASE 104 U/L (30-120); ALT (SGPT) 25 U/L (10-68); BILIRUBIN - TOTAL 0.13 mg/dL (0.2-1.3); CKMB 0.4 U/L (0.0-3.6); CREATINE KINASE 68 UL (21-215); MAGNESIUM - SERUM 1.9 mg/dL (1.8-2.4); PROTEIN - SERUM 6.9 g/dL (6.4-8.2); TROPONIN-I < 0.017 ng/mL (0.000-0.060)
[2020-04-06 00:59] VITALS: BP 111/58
== END 2020-04-06 01:04 | disposition home or self-care (01) ==
LOC: D.ER 22:56
PROVIDERS: Family Medicine
DX: R55 Syncope and collapse (principal); Z86.79 Personal history of other diseases of the circulatory system

== ENCOUNTER 2020-10-28 19:56 | Emergency (ER) | payer BC ==
[~2020-10-28 19:56] MED LIST changes: +PROPAFENONE HC150 MG PO
[2020-10-28 20:03] VITALS: BP 119/74; Ht 160 cm
[2020-10-28] MEDS ORDERED: ULTRAM50 MG PO (22:31)
[2020-10-28] MEDS ORDERED: NAPROSYN500 MG PO (22:31)
== END 2020-10-28 22:37 | disposition home or self-care (01) ==
LOC: D.ER 19:56
DX: S70.02XA Contusion of left hip, initial encounter (principal); M25.571 Pain in right ankle and joints of right foot; W19.XXXA Unspecified fall, initial encounter; Y93.9 Activity, unspecified; Y92.9 Unspecified place or not applicable

== ENCOUNTER → 2020-11-10 | Emergency (ER) | payer BC ==
[~2020-11-10] VITALS: Ht 160 cm; Wt 76.8 kg
[~2020-11-10] MED LIST changes: +NAPROSYN500 MG PO; +ULTRAM50 MG PO
[2020-11-10 07:32] VITALS: BP 147/78; Ht 160 cm; Wt 76.8 kg
[2020-11-10 07:53] LABS: BASOPHILS 0.7 % (0-2); EOSINOPHILS 2.3 % (0-7); HEMATOCRIT 33.7 % (36.0-48.0); HEMOGLOBIN 10.7 g/dL (12-16); LYMPHOCYTES 27.2 % (15-50); MCH 21.7 pg (26.0-34.0); MCHC 31.8 g/dL (31.0-37.0); MCV 68.3 fL (80.0-100.0); MEAN PLATELET VOLUME 6.8 fL (7.4-10.4); MONOCYTES 7.7 % (2-11); NEUTROPHILS 62.1 % (40-80); RBC 4.94 10x6/uL (4.00-5.40); RDW 18.1 % (11.5-14.5)
[2020-11-10 07:56] LABS: PLATELET COUNT 452 10x3/uL (130-400)
[2020-11-10 08:09] LABS: CALC OSMOLALITY 277 mosm/kg (275-300); CALCIUM 8.9 mg/dL (8.5-10.1); CARBON DIOXIDE 23.4 mmol/L (21.0-32.0); CHLORIDE - SERUM 102 mmol/L (98-107); CREATININE - SERUM 0.9 mg/dL (0.6-1.3); GLUCOSE 98 mg/dL (74-106); POTASSIUM - SERUM 3.4 mmol/L (3.5-5.1); SODIUM 137 mmol/L (136-145); UREA NITROGEN 23 mg/dL (7-18); eGFR NON AFRICAN AMERICAN 72 mL/min (90-120)
[2020-11-10 08:13] LABS: ALBUMIN 3.7 g/dL (3.4-5.0); ALKALINE PHOSPHATASE 105 U/L (30-120); ALT (SGPT) 79 U/L (10-68); BILIRUBIN - TOTAL 0.26 mg/dL (0.2-1.3); MAGNESIUM - SERUM 1.9 mg/dL (1.8-2.4); PRO BNP 101 pg/mL (0-125); PROTEIN - SERUM 7.5 g/dL (6.4-8.2); THYROID STIMULATING HORMONE 5.97 uIU/mL (0.36-3.74)
[2020-11-10 08:14] LABS: C-REACTIVE PROTEIN < 0.2 mg/dL (0.0-0.9); TROPONIN-I < 0.017 ng/mL (0.000-0.060)
== END | disposition home or self-care (01) ==
LOC: D.ER 07:27
PROVIDERS: Family Medicine
DX: R00.2 Palpitations (principal); D64.9 Anemia, unspecified; E87.6 Hypokalemia; R53.1 Weakness